=== PATIENT | male | born 1940 | race Caucasian/White ===

== ENCOUNTER 2017-02-05 12:17 | Emergency (ER) | payer OTHER ==
[~2017-02-05] VITALS: Ht 182.9 cm; Wt 107.6 kg
[2017-02-05 13:09] LABS: HEMATOCRIT 47.2 % (38.0-50.0); MCH 28.9 PG (29.0-34.0); MCHC 32.6 G/DL (30.0-36.0); MCV 88.7 FL (86-99); MEAN PLAT.VOLUME 9.5 uM^3 (9.0-12.4); PLATELET COUNT 210 K/uL (156-360); RBC DIS.WIDTH-CV 13.2 % (11.8-14.6); RBC DIS.WIDTH-SD 42.7 % (39-53); RED BLOOD COUNT 5.32 M/uL (4.00-5.50); WHITE BLOOD COUNT 9.8 K/uL (4.1-10.2)
[2017-02-05 13:20] LABS: CHLORIDE 108 mEq/L (99-109); POTASSIUM 4.5 mEq/L (3.7-5.4); SODIUM 140 mEq/L (136-147)
[2017-02-05 13:21] LABS: GLUCOSE 103 mg/dL (70-99)
[2017-02-05 13:23] LABS: ANION GAP 10 MEQ/L (2-14)
[2017-02-05 13:25] LABS: GFR ESTIMATE (CALCULATED) 42 mL/min/
[2017-02-05 13:26] LABS: UREA NITROGEN (BUN) 28 mg/dL (9-23)
[2017-02-05 14:10] LABS: ADD MIUA? YES; BILIRUBIN NEGATIVE; BLOOD NEGATIVE; COLOR YELLOW ((YELLOW)); GLUCOSE (STRIP) NEGATIVE; KETONES NEGATIVE; LEUKOCYTES NEGATIVE; NITRITE NEGATIVE; PROTEIN (STRIP) 30
[2017-02-05 14:13] LABS: BACTERIA NONE SEEN /HPF; EPITHELIAL CELLS NONE SEEN /HPF; MUCUS TRACE /LPF; RED BLOOD CELLS 0-5 /HPF (0-5); UCUL ADDED? NO; WHITE BLOOD CELLS 0-5 /HPF (0-5)
[2017-02-05 14:32] LABS: TOTAL BILIRUBIN 0.9 mg/dL (0.0-1.0); TROP-I INTERPRETATION NEGATIVE; TROPONIN-I < 0.01 ng/mL (0.0-0.30)
[2017-02-05 14:33] LABS: ALKALINE PHOSPHATASE 79 IU/L (3-129)
[2017-02-05 14:36] LABS: DIRECT BILIRUBIN 0.3 mg/dL (0.0-0.3)
[2017-02-05 14:37] LABS: LIPASE 14 U/L (1.0-51.0)
[2017-02-05] MEDS ORDERED: MIRALAX255 GM PO (17:41)
[2017-02-05] MEDS ORDERED: RECTICARE30 GM TP (17:41)
[2017-02-05 18:14] VITALS: BP 140/75
== END 2017-02-05 18:32 | disposition home or self-care (01) ==
LOC: EME 12:17
PROVIDERS: Emergency Medicine
DX: K59.00 Constipation, unspecified (principal); E78.5 Hyperlipidemia, unspecified; I10 Essential (primary) hypertension; Z87.442 Personal history of urinary calculi
CPT/HCPCS: 74176; 80048; 80076; 81003; 83605; 83690; 84484; 85027; 99281; 99285; J7030

== ENCOUNTER 2017-02-24 13:55 | Day surgery (SDC) | payer OTHER ==
[~2017-02-24] VITALS: Ht 182.9 cm; Wt 106.5 kg
[~2017-02-24 13:55] MED LIST: LEVOXYL125 MCG PO; MIRALAX255 GM PO; MONOPRIL40 MG PO; NORVASC5 MG PO; PRAVASTATIN SOD40 MG PO; RECTICARE30 GM TP
[2017-02-24 15:33] VITALS: BP 163/92
[2017-02-24] MEDS ORDERED: PERCOCET 5/31 TABLET PO (16:41)
[2017-02-24] MEDS ORDERED: OXYCONTIN10 MG PO (16:41)
[2017-02-24] MEDS ORDERED: PROCTOSOL-HC28.35 GM PR (16:41)
[2017-02-24] MEDS ORDERED: COLACE100 MG PO (16:41)
[2017-02-24 17:40] VITALS: BP 137/83
[2017-02-24 18:40] VITALS: BP 140/74
[2017-02-24 20:40] VITALS: BP 165/82
[2017-02-24 22:49] VITALS: BP 177/86
== END 2017-02-24 22:50 | disposition home or self-care (01) ==
LOC: SDC 13:55
DX: K64.8 Other hemorrhoids (principal); K64.4 Residual hemorrhoidal skin tags; N28.9 Disorder of kidney and ureter, unspecified; K40.90 Unilateral inguinal hernia, without obstruction or gangrene, not specified as recurrent; K44.9 Diaphragmatic hernia without obstruction or gangrene; I10 Essential (primary) hypertension; E78.5 Hyperlipidemia, unspecified; E03.9 Hypothyroidism, unspecified; G47.33 Obstructive sleep apnea (adult) (pediatric)
CPT/HCPCS: 88304; J0585; J1170; J3010; S0030